=== PATIENT | female | born 1975 | race Caucasian/White ===

== ENCOUNTER 2018-12-03 13:38 | Emergency (ER) | payer OTHER ==
[~2018-12-03] VITALS: Ht 165.1 cm; Wt 48.1 kg
[2018-12-03] MEDS ORDERED: LISINOPRIL20 MG PO (13:46)
[2018-12-03] MEDS ORDERED: VERAPAMIL ER120 M1 PO (13:47)
[2018-12-03] MEDS ORDERED: DEPAKOTE ER500 MG PO (13:47)
[2018-12-03] MEDS ORDERED: ASPIR 8181 MG PO (13:48)
[2018-12-03 15:16] VITALS: BP 110/78
[2018-12-03] MEDS ORDERED: NAPROSYN500 MG PO (15:16)
== END 2018-12-03 15:17 | disposition home or self-care (01) ==
LOC: ER 13:38
DX: S60.221A Contusion of right hand, initial encounter (principal); R68.84 Jaw pain; F17.210 Nicotine dependence, cigarettes, uncomplicated; I10 Essential (primary) hypertension; G43.909 Migraine, unspecified, not intractable, without status migrainosus; G62.9 Polyneuropathy, unspecified; Z86.73 Personal history of transient ischemic attack (TIA), and cerebral infarction without residual deficits; Z88.0 Allergy status to penicillin; V49.40XA Driver injured in collision with unspecified motor vehicles in traffic accident, initial encounter; Y93.89 Activity, other specified; Y92.89 Other specified places as the place of occurrence of the external cause; Y99.8 Other external cause status